=== PATIENT | male | born 1985 | race African-American/Black ===

== ENCOUNTER 2020-03-29 15:32 | Emergency (ER) | payer OTHER ==
[~2020-03-29] VITALS: Ht 188 cm; Wt 90.7 kg
[2020-03-29] MEDS ORDERED: IBUPROFEN 800800 M1 PO (17:06)
[2020-03-29] MEDS ORDERED: CYCLOBENZAPRINE5 MG PO (17:06)
[2020-03-29 17:19] VITALS: BP 135/87
== END 2020-03-29 17:20 | disposition home or self-care (01) ==
LOC: ER 15:32
DX: M25.511 Pain in right shoulder (principal); M54.2 Cervicalgia; M54.6 Pain in thoracic spine; R51 Headache; V89.2XXA Person injured in unspecified motor-vehicle accident, traffic, initial encounter; Y93.I9 Activity, other involving external motion; Y92.488 Other paved roadways as the place of occurrence of the external cause; Y99.8 Other external cause status